=== PATIENT | female | born 1970 | race Two or more races ===

== ENCOUNTER 2024-10-02 19:15 | Emergency (ER) | payer MEDICAID, OTHER ==
[~2024-10-02] VITALS: Ht 157.5 cm; Wt 66.4 kg
[2024-10-02 19:42] VITALS: BP 117/73; RESP 14; TEMP 98.3; O2SAT 98
[2024-10-02 19:50] VITALS: PULSE 66
--- NOTE | 2024-10-02 20:16 | ED.PDOC ---
Eye-HPI HPI Comments 54 y/o F, with PMHX of HTN and acid reflux presents to the ED for CC of dizziness. Patient states, that she has been experiencing dizziness and nausea x3days with associated symptoms of earache x1week. Patient relays, that she was seen at [facility] for her earache; patient prescribed antibiotics and completed Rx. Patient describes dizziness to feel as if the room were spinning worsening with movement. Patient denies chills, body-aches, fatigue, or weakness. No other symptoms or modifying factors at this time. Chief Complaint: Dizziness Time Seen by MD: 20:05 Reviewed Notes: Nurses Notes, Medications, Allergies Allergies: Coded Allergies: NO KNOWN ALLERGIES (Unverified , 10/02/24) Information Source: Patient Mode of Arrival: Ambulatory Timing: Days Duration: Since onset Lids: Normal Conjunctiva: Normal Cornea: Normal Pupils: Normal EOM: Normal Fundus: Normal Slit lamp exam: Normal Anterior chamber: Normal Nose: Normal Sinuses: Normal Oropharynx: Normal History of: None Last Tetanus: Unknown Associated signs and symptoms: Ear Pain Past Medical History PAST MEDICAL HISTORY: HTN Past Medical History (Other): ACID REFLUX Surgical History: Tubal Ligation Surgical History (Other): BREAST AUGMENTATION GARBAGE WORKER History: Denies all GARBAGE WORKER Hx Family History Family History: Unknown Social History Smoker: Non-Smoker Alcohol: Denies ETOH Use Drugs: Denies Drug Use Lives In: Home Constitutional: denies: chills, diaphoresis, fatigue, fever, malaise, sweats, weakness, others EENTM: reports: ear pain; denies: blurred vision, double vision, ear bleeding, ear discharge, ear drainage, ear ringing, eye pain, eye redness, hearing loss, mouth pain, mouth swelling, nasal discharge, nose bleeding, nose congestion, nose pain, photophobia, tearing, throat pain, throat swelling, voice changes, others Respiratory: denies: cough, hemoptysis, orthopnea, SOB at rest, shortness of breath, SOB with excertion, stridor, wheezing, others Cardiovascular: denies: chest pain, dizzy spells, diaphoresis, Dyspnea on exe rtion, edema, irregular heart beat, left arm pain, lightheadedness, palpitations, PND, syncope, others Gastrointestinal: denies: abdomen distended, abdominal pain, blood streaked bowels, constipated, diarrhea, dysphagia, difficulty swallowing, hematemesis, melena, nausea, poor appetite, poor fluid intake, rectal bleeding, rectal pain, vomiting, others Genitourinary: denies: abnormal vagina bleeding, burning, dyspareunia, dysuria, flank pain, frequency, hematuria, incontinence, pain, , vagina discharge, urgency, others Neurological: reports: dizziness; denies: fainting, headache, left sided numbness, left sided weakness, numbness, paresthesia, pre-existing deficit, right sided numbness, right sided weakness, seizure, speech problems, tingling, tremors, weakness, others Musculoskeletal: denies: back pain, gout, joint pain, joint swelling, muscle pain, muscle stiffness, neck pain, others Integumetry: denies: bruises, change in color, change in hair/nails, dryness, laceration, lesions, lumps, rash, wounds, others Allergic/Immunocompromised: denies: Difficulty Healing, Frequent Infections, Hives, Itching, others Hematologic/Lymphatic: denies: anemia, blood clots, easy bleeding, easy bruising, swollen glands, others Endocrine: denies: excessive hunger, excessive sweating, excessive thirst, excessive urination, flushing, intolerance to cold, intolerance to heat, unexplained weight gain, unexplained weight loss, others Psychiatric: denies: anxiety, bipolar disorder, depression, hopeless, panic disorder, schizophrenia, sleepless, suicidal, others All Other Systems: Reviewed and Negative Physical Exam General Appearance: No Apparent Distress, Normal HEENT: Normal ENT Inspection, Pharynx Normal, TMs Normal, Other (CERUMEN MD OMINET IN RIGHT EAR CANAL ) Neck: Full Range of Motion, Non-Tender, Normal, Normal Inspection Respiratory: Chest Non-Tender, Lungs Clear, No Accessory Muscle Use, No Respiratory Distress, Normal Breath Sounds Cardiovascular: No Edema, No JVD, No Murmur, No Gallop, Normal Peripheral Pulses, Regular Rate/Rhythm Breast Exam: Deferred Gastrointestinal: No Organomegaly, Non Tender, No Pulsatile Mass, Normal Bowel Sounds, Soft Genitalia: Deferred Pelvic: Deferred Rectal: Deferred Extremities: No calf tenderness, Normal capillary refill, Normal inspection, Normal range of motion, Non-tender, No pedal edema Musculoskeletal : Apperance: Normal Neurologic: Alert, 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 Was a procedure done?: No EENT DIFF Eye: N/A Ear: Cerumen Impaction, Otitis Media X-Ray, Labs, Meds, VS Vital Signs Date Time Temp Pulse Resp B/P (MAP) Pulse Ox O2 Delivery O2 Flow Rate FiO2 10/02/24 19:50 66 10/02/24 19:42 98.3 74 14 117/73 (88) 98 98.3 Lab Test 10/02/24 19:45 Range/Units POC Glucose 94 70-106 mg/dl X-Ray, Labs, Meds, VS Comment Imaging: X-rays and CT scans were reviewed and interpreted by this provider, imaging shows no fractures and no pathological disease. Pending radiology review. Laboratory: Labs reviewed and interpreted by this provider. No significant abnormalities noted. Patient has prior medical visits reviewed. Med reconciliation performed Vital signs reviewed Time of 1ST Reevaluation: 20:35 Reevaluation 1ST: Unchanged Patient Education/Counseling: Diagnosis, Treatment, Need For Follow Up (Follow up in the emergency department in the next 24-48 hours if symptoms worsen. It was advised to follow up with your primary care doctor in the next 3-4 days for further evaluation.) Family Education/Counseling: No Family Present Departure 1 Departure Time of Disposition: 20:22 Impression: Primary Impression: Benign positional vertigo Qualified Codes: H81.11 - Benign paroxysmal vertigo, right ear Disposition: HOME / SELF CARE / HOMELESS Condition: Fair e-Prescriptions Meclizine HCl (Meclizine 25) 25 Mg Tab 25 MG PO TID PRN, #40 TAB Prov: JENNIE NUÑEZ 10/02/24 Discharged With: Self Critical Care Note Critical Care Time?: No Stability Stability form required: No Heart Score Heart Score: Heart Score Response (Comments) Value History N/A 0 EKG N/A 0 Age N/A 0 Risk Factors N/A 0 Troponin N/A 0 Total 0 I personally scribed for JENNIE NUÑEZ ([email or web address]) on 10/02/24 at 20:16. Electronically submitted by Arleth York ([email or web address]). JENNIE NUÑEZ [facility] Oct 02, 2024 20:16
[2024-10-02] MEDS ORDERED: MECL1TAB42 PO (20:23)
--- NOTE | 2024-10-04 10:10 | ECG ---
[facility] Test Date: 2024-10-02 Test Time: 19:50:54 Pat Name: TRE NASH Department: ED Room: Gender: F [employer] Performer: [place] : 1970 Requested By: JENNIE NUÑEZ Order Number: [id number] Reading MD: Ian Mai Measurements Intervals [place] Rate: 66 P: 50 WV: 174 QRS: 59 QRSD: 91 T: 23 QT: 402 QTc: 422 Interpretive Statements Sinus rhythm Electronically Signed On 10-06-2024 17:19:56 PDT by Ian Mai Please click the below link to view image of tracing.
== END 2024-10-02 23:59 | disposition home or self-care (01) ==
LOC: ER 19:15
DX: H81.10 Benign paroxysmal vertigo, unspecified ear (principal); I10 Essential (primary) hypertension; Z98.51 Tubal ligation status; Z98.890 Other specified postprocedural states
CPT/HCPCS: 82947; 93005; 99283; J7030; 82962